=== PATIENT | male | born 1965 | race Caucasian/White ===

== ENCOUNTER → 2016-12-16 | Outpatient (CLI) | payer OTHER ==
[2015-12-05 14:28] VITALS: BP 122/79
[~2016-12-16] MED LIST: ABAC1TAB7 PO; ALPR0.5T PO; ATOR10TA60 PO; CYCL5TAB PO; EFAV600T PO; ESCI10TA PO; FENO145T PO; HYDR-971 PO; LISI-338 PO; OMEP20CA9 PO; PARO20TA2 PO; PHOS250T3 PO; VALIUM10 MG PO; ZOLP10TA4 PO
[2016-12-16 07:52] LABS: BASO % 0 % (0-3); EOS % 0 % (0-3); HEMOGLOBIN 14.4 g/dL (13.0-17.5); LYMPH # 2.5 x10^3/uL (1.0-4.8); LYMPH % 35 % (24-48); MEAN CORPUSCULAR HEMOGLOBIN 35 pg (25-35); MEAN CORPUSCULAR HGB CONC 34 g/dL (31-37); MEAN CORPUSCULAR VOLUME 104 fL (79-100); MONO % 7 % (0-9); NEUT % 57 % (31-73); PLATELET COUNT 159 x10^3/uL (140-400); RED BLOOD COUNT 4.13 x10^6/uL (4.30-5.70); RED CELL DISTRIBUTION WIDTH 13.6 % (11.5-14.5)
[2016-12-16 07:59] LABS: ALBUMIN 4.2 g/dL (3.4-5.0); ALBUMIN/GLOBULIN RATIO 1.2 (1.0-1.7); CALCIUM 9.4 mg/dL (8.5-10.1); CREATININE 1.3 mg/dL (0.7-1.3); GFR 58.7; TOTAL BILIRUBIN 0.3 mg/dL (0.2-1.0); TOTAL PROTEIN 7.6 g/dL (6.4-8.2)
== END | disposition home or self-care (01) ==
LOC: LAB 07:26
PROVIDERS: ATTEND Family Medicine
DX: Z79.899 Other long term (current) drug therapy (principal)
CPT/HCPCS: 36415; 80053; 85027

== ENCOUNTER → 2016-12-16 | Outpatient (CLI) | payer OTHER ==
[2015-12-05 14:28] VITALS: BP 122/79
[~2016-12-16] MED LIST changes: -PARO20TA2 PO; +PARO20TA3 PO
--- NOTE | 2016-12-17 10:36 | RAD ---
Indication fever and chills. Wheezing. Difficulty breathing. PA and lateral views of the chest were obtained. Comparison is made to an examination 08/06/2013. The heart and pulmonary vessels appear normal. The mediastinum has a normal appearance. The lungs are clear. Visualized bony structures appear grossly intact. A significant change compared to the prior exam is not seen. IMPRESSION: No acute finding. No significant change
== END | disposition home or self-care (01) ==
LOC: RAD 16:39
PROVIDERS: ATTEND Nurse Practitioner Family
DX: R06.2 Wheezing (principal); R50.9 Fever, unspecified; R06.02 Shortness of breath; R09.89 Other specified symptoms and signs involving the circulatory and respiratory systems
CPT/HCPCS: 71020

== ENCOUNTER → 2016-12-30 | Outpatient (CLI) | payer OTHER ==
[2015-12-05 14:28] VITALS: BP 122/79
[~2016-12-30] MED LIST changes: +PARO20TA2 PO; -PARO20TA3 PO
[2016-12-30 06:31] LABS: HEMATOCRIT 41.3 % (39.0-53.0); HEMOGLOBIN 13.8 g/dL (13.0-17.5)
[2016-12-30 12:22] LABS: ESTRADIOL LEVEL 73.5 pg/mL (7.6-42.6)
[2016-12-30 15:32] LABS: HOMOCYSTINE LEVEL 14.5 umol/L (0.0-15.0)
[2016-12-31 00:11] LABS: VITAMIN D25(OH)TOTAL 38.3 ng/mL (30.0-100.0)
== END | disposition home or self-care (01) ==
LOC: LAB 12-29 13:38
PROVIDERS: ATTEND Nurse Practitioner Women's Health
DX: E29.1 Testicular hypofunction (principal); E55.9 Vitamin D deficiency, unspecified
CPT/HCPCS: 36415; 82306; 82670; 83090; 84402; 84403; 85014; 85018; G0103

== ENCOUNTER → 2017-02-06 | Outpatient (CLI) | payer OTHER ==
[2015-12-05 14:28] VITALS: BP 122/79
[~2017-02-06] MED LIST changes: -PARO20TA2 PO; +PARO20TA3 PO
[2017-02-06 15:16] LABS: HEMATOCRIT 40.5 % (39.0-53.0); HEMOGLOBIN 13.4 g/dL (13.0-17.5)
[2017-02-07 02:13] LABS: VITAMIN D25(OH)TOTAL 46.9 ng/mL (30.0-100.0)
== END | disposition home or self-care (01) ==
LOC: LAB 14:34
PROVIDERS: ATTEND Nurse Practitioner Women's Health
DX: E29.1 Testicular hypofunction (principal); E55.9 Vitamin D deficiency, unspecified
CPT/HCPCS: 36415; 82306; 84402; 84403; 85014; 85018

== ENCOUNTER → 2017-02-17 | Outpatient (CLI) | payer OTHER ==
[2015-12-05 14:28] VITALS: BP 122/79
[2017-02-17 09:40] LABS: BASO % 0 % (0-3); EOS % 1 % (0-3); HEMATOCRIT 42.9 % (39.0-53.0); HEMOGLOBIN 14.4 g/dL (13.0-17.5); LYMPH # 2.3 x10^3/uL (1.0-4.8); LYMPH % 39 % (24-48); MEAN CORPUSCULAR HEMOGLOBIN 34 pg (25-35); MEAN CORPUSCULAR HGB CONC 34 g/dL (31-37); MEAN CORPUSCULAR VOLUME 102 fL (79-100); MONO % 10 % (0-9); NEUT % 50 % (31-73); PLATELET COUNT 204 x10^3/uL (140-400); RED CELL DISTRIBUTION WIDTH 13.2 % (11.5-14.5); WHITE BLOOD COUNT 5.9 x10^3/uL (4.0-11.0)
[2017-02-17 10:04] LABS: ALBUMIN 3.9 g/dL (3.4-5.0); ALBUMIN/GLOBULIN RATIO 1.1 (1.0-1.7); CALCIUM 9.2 mg/dL (8.5-10.1); CREATININE 1.1 mg/dL (0.7-1.3); GFR 71.1; TOTAL BILIRUBIN 0.3 mg/dL (0.2-1.0); TOTAL PROTEIN 7.3 g/dL (6.4-8.2)
[2017-02-17 10:05] LABS: CHOLESTEROL/HDL RATIO 1.8
[2017-03-01 11:27] LABS: HIV 1/2 AB DIFFERENTIATION SEE SEPARATE REPORT
== END | disposition home or self-care (01) ==
LOC: LAB 08:56
PROVIDERS: ATTEND Family Medicine
DX: B20 Human immunodeficiency virus [HIV] disease (principal)
CPT/HCPCS: 36415; 80053; 80061; 85027; 86703

== ENCOUNTER → 2017-05-08 | Outpatient (CLI) | payer OTHER ==
[2015-12-05 14:28] VITALS: BP 122/79
[~2017-05-08] MED LIST changes: -ESCI10TA PO; +ESCITALOPRAM OX10 MG PO
[2017-05-08 09:10] LABS: BASO % 1 % (0-3); EOS % 0 % (0-3); HEMATOCRIT 44.5 % (39.0-53.0); HEMOGLOBIN 15.2 g/dL (13.0-17.5); LYMPH # 2.4 x10^3/uL (1.0-4.8); LYMPH % 39 % (24-48); MEAN CORPUSCULAR HEMOGLOBIN 32 pg (25-35); MEAN CORPUSCULAR HGB CONC 34 g/dL (31-37); MEAN CORPUSCULAR VOLUME 95 fL (79-100); MONO % 8 % (0-9); NEUT % 53 % (31-73); PLATELET COUNT 175 x10^3/uL (140-400); RED BLOOD COUNT 4.71 x10^6/uL (4.30-5.70); RED CELL DISTRIBUTION WIDTH 14.7 % (11.5-14.5); WHITE BLOOD COUNT 6.3 x10^3/uL (4.0-11.0)
[2017-05-08 09:43] LABS: ALBUMIN 3.7 g/dL (3.4-5.0); ALBUMIN/GLOBULIN RATIO 1.1 (1.0-1.7); CALCIUM 8.6 mg/dL (8.5-10.1); CREATININE 1.3 mg/dL (0.7-1.3); GFR 58.7; POTASSIUM 3.7 mmol/L (3.5-5.1); TOTAL BILIRUBIN 0.7 mg/dL (0.2-1.0)
== END | disposition home or self-care (01) ==
LOC: LAB 08:49
PROVIDERS: ATTEND Family Medicine
DX: B20 Human immunodeficiency virus [HIV] disease (principal); Z79.899 Other long term (current) drug therapy
CPT/HCPCS: 80053; 85027

== ENCOUNTER → 2017-05-23 | Outpatient (CLI) | payer OTHER ==
[2015-12-05 14:28] VITALS: BP 122/79
[2017-05-23 09:35] LABS: BASO % 0 % (0-3); EOS % 1 % (0-3); HEMATOCRIT 44.6 % (39.0-53.0); HEMOGLOBIN 15.3 g/dL (13.0-17.5); LYMPH # 2.3 x10^3/uL (1.0-4.8); LYMPH % 48 % (24-48); MEAN CORPUSCULAR HEMOGLOBIN 32 pg (25-35); MEAN CORPUSCULAR HGB CONC 34 g/dL (31-37); MEAN CORPUSCULAR VOLUME 95 fL (79-100); MONO % 10 % (0-9); NEUT % 42 % (31-73); PLATELET COUNT 158 x10^3/uL (140-400); RED BLOOD COUNT 4.71 x10^6/uL (4.30-5.70); RED CELL DISTRIBUTION WIDTH 15.7 % (11.5-14.5); WHITE BLOOD COUNT 4.8 x10^3/uL (4.0-11.0)
[2017-05-23 09:48] LABS: ALBUMIN 3.8 g/dL (3.4-5.0); ALBUMIN/GLOBULIN RATIO 1.1 (1.0-1.7); CALCIUM 9.5 mg/dL (8.5-10.1); CREATININE 1.2 mg/dL (0.7-1.3); GFR 64.4; TOTAL BILIRUBIN 0.6 mg/dL (0.2-1.0); TOTAL PROTEIN 7.2 g/dL (6.4-8.2)
[2017-05-23 09:52] LABS: CHOLESTEROL/HDL RATIO 2.3
== END | disposition home or self-care (01) ==
LOC: LAB 08:47
PROVIDERS: ATTEND Specialist
DX: E29.1 Testicular hypofunction (principal)
CPT/HCPCS: 36415; 80053; 80061; 83036; 84402; 84403; 84443; 85027

== ENCOUNTER → 2017-06-26 | Outpatient (CLI) | payer OTHER ==
[2015-12-05 14:28] VITALS: BP 122/79
== END | disposition home or self-care (01) ==
LOC: LAB 08:34
PROVIDERS: ATTEND Family Medicine
DX: E29.1 Testicular hypofunction (principal)
CPT/HCPCS: 36415

== ENCOUNTER → 2017-08-01 | Outpatient (CLI) | payer OTHER ==
[2015-12-05 14:28] VITALS: BP 122/79
[2017-08-03 01:11] LABS: VITAMIN D25(OH)TOTAL 57.2 ng/mL (30.0-100.0)
[2017-08-05 16:14] LABS: % FREE TESTOSTERONE 3.42 % (1.50-4.20); TESTOSTERONE FREE >51.30 ng/dL (5.00-21.00); TESTOSTERONE TOTAL >1500 ng/dL (264-916)
== END | disposition home or self-care (01) ==
LOC: LAB 15:20
DX: Z12.5 Encounter for screening for malignant neoplasm of prostate (principal); E29.1 Testicular hypofunction
CPT/HCPCS: 36415; G0103; 82306; 82670; 84402; 84403

== ENCOUNTER → 2017-09-07 | Outpatient (CLI) | payer OTHER ==
[2015-12-05 14:28] VITALS: BP 122/79
[2017-09-07 14:07] LABS: BASO % 0 % (0-3); EOS % 1 % (0-3); HEMATOCRIT 48.3 % (39.0-53.0); HEMOGLOBIN 16.5 g/dL (13.0-17.5); LYMPH # 3.8 x10^3/uL (1.0-4.8); LYMPH % 42 % (24-48); MEAN CORPUSCULAR HEMOGLOBIN 35 pg (25-35); MEAN CORPUSCULAR HGB CONC 34 g/dL (31-37); MEAN CORPUSCULAR VOLUME 101 fL (79-100); MONO % 6 % (0-9); NEUT % 52 % (31-73); PLATELET COUNT 153 x10^3/uL (140-400); RED BLOOD COUNT 4.78 x10^6/uL (4.30-5.70); RED CELL DISTRIBUTION WIDTH 14.2 % (11.5-14.5); WHITE BLOOD COUNT 9.1 x10^3/uL (4.0-11.0)
[2017-09-07 14:26] LABS: ALBUMIN 4.1 g/dL (3.4-5.0); ALBUMIN/GLOBULIN RATIO 1.2 (1.0-1.7); CALCIUM 9.5 mg/dL (8.5-10.1); CREATININE 1.2 mg/dL (0.7-1.3); GFR 64.1; POTASSIUM 3.5 mmol/L (3.5-5.1); TOTAL BILIRUBIN 0.5 mg/dL (0.2-1.0); TOTAL PROTEIN 7.6 g/dL (6.4-8.2)
[2017-09-08 00:11] LABS: RPR REFLEX Non Reactive (Non Reactive)
[2017-09-10 14:10] LABS: HIV-1 RNA BY PCR <20 copies/mL (.)
== END | disposition home or self-care (01) ==
LOC: LAB 13:42
PROVIDERS: ATTEND Family Medicine
DX: B20 Human immunodeficiency virus [HIV] disease (principal); Z79.899 Other long term (current) drug therapy
CPT/HCPCS: 36415; 80053; 80061; 85025; 86593; 87536

== ENCOUNTER → 2017-12-04 | Outpatient (CLI) | payer OTHER ==
[2017-12-04 08:00] LABS: ADD MAN DIFF? NO
[2017-12-04 08:14] LABS: BASO % 0 % (0-3); EOS # 0.1 x10^3/uL (0.0-0.7); EOS % 1 % (0-3); HEMATOCRIT 45.2 % (39.0-53.0); HEMOGLOBIN 15.7 g/dL (13.0-17.5); LYMPH # 2.8 x10^3/uL (1.0-4.8); LYMPH % 50 % (24-48); MEAN CORPUSCULAR HEMOGLOBIN 36 pg (25-35); MEAN CORPUSCULAR HGB CONC 35 g/dL (31-37); MEAN CORPUSCULAR VOLUME 105 fL (79-100); MONO # 0.5 x10^3/uL (0.0-1.1); MONO % 8 % (0-9); NEUT # 2.2 x10^3uL (1.8-7.7); NEUT % 40 % (31-73); PLATELET COUNT 169 x10^3/uL (140-400); RED CELL DISTRIBUTION WIDTH 13.7 % (11.5-14.5); WHITE BLOOD COUNT 5.5 x10^3/uL (4.0-11.0)
[2017-12-04 08:28] LABS: ALBUMIN 4.1 g/dL (3.4-5.0); ALBUMIN/GLOBULIN RATIO 1.2 (1.0-1.7); ALK PHOS 69 U/L (46-116); ALT (SGPT) 52 U/L (16-63); ANION GAP 9 (6-14); AST (SGOT) 28 U/L (15-37); BLOOD UREA NITROGEN 24 mg/dL (8-26); BUN/CREATININE RATIO 17 (6-20); CALCIUM 8.8 mg/dL (8.5-10.1); CARBON DIOXIDE 29 mmol/L (21-32); CHLORIDE 103 mmol/L (98-107); CHOLESTEROL 115 mg/dL (0-200); CREATININE 1.4 mg/dL (0.7-1.3); GFR 53.6; GLUCOSE 95 mg/dL (70-99); HDLC 58 mg/dL (40-60); LDLC 39 mg/dL (0-100); NON-HDL CHOLESTEROL 57 mg/dL (0-129); POTASSIUM 4.1 mmol/L (3.5-5.1); SODIUM 141 mmol/L (136-145); TOTAL BILIRUBIN 0.5 mg/dL (0.2-1.0); TOTAL PROTEIN 7.4 g/dL (6.4-8.2); TRIGLYCERIDES 88 mg/dL (0-150); VLDLC 18 mg/dL (0-40)
[2017-12-04 09:52] LABS: PROSTATE SPECIFIC ANTIGEN 0.95 ng/mL (0.00-4.00)
[2017-12-04 19:12] LABS: ESTRADIOL LEVEL 35.6 pg/mL (7.6-42.6)
[2017-12-07 10:24] LABS: % FREE TESTOSTERONE 3.21 % (1.50-4.20); TESTOSTERONE FREE 28.28 ng/dL (5.00-21.00); TESTOSTERONE TOTAL 881 ng/dL (264-916)
== END | disposition home or self-care (01) ==
LOC: LAB 07:14
DX: Z12.5 Encounter for screening for malignant neoplasm of prostate (principal); Z13.9 Encounter for screening, unspecified; E29.1 Testicular hypofunction; E55.9 Vitamin D deficiency, unspecified
CPT/HCPCS: 36415; 80053; 80061; 82306; 82670; 84402; 84403; 85025; G0103

== ENCOUNTER → 2018-02-01 | Outpatient (CLI) | payer OTHER ==
[2018-02-01 07:36] LABS: ADD MAN DIFF? NO
[2018-02-01 07:46] LABS: BASO % 1 % (0-3); EOS # 0.1 x10^3/uL (0.0-0.7); EOS % 1 % (0-3); HEMOGLOBIN 15.6 g/dL (13.0-17.5); LYMPH % 57 % (24-48); MEAN CORPUSCULAR HEMOGLOBIN 37 pg (25-35); MEAN CORPUSCULAR HGB CONC 35 g/dL (31-37); MEAN CORPUSCULAR VOLUME 106 fL (79-100); MONO # 0.4 x10^3/uL (0.0-1.1); MONO % 8 % (0-9); NEUT # 1.7 x10^3uL (1.8-7.7); NEUT % 33 % (31-73); PLATELET COUNT 170 x10^3/uL (140-400); RED BLOOD COUNT 4.27 x10^6/uL (4.30-5.70); RED CELL DISTRIBUTION WIDTH 12.9 % (11.5-14.5); WHITE BLOOD COUNT 5.3 x10^3/uL (4.0-11.0)
[2018-02-01 08:57] LABS: ALBUMIN/GLOBULIN RATIO 1.2 (1.0-1.7); ALK PHOS 52 U/L (46-116); ALT (SGPT) 29 U/L (16-63); ANION GAP 10 (6-14); AST (SGOT) 21 U/L (15-37); BLOOD UREA NITROGEN 23 mg/dL (8-26); BUN/CREATININE RATIO 14 (6-20); CALCIUM 8.8 mg/dL (8.5-10.1); CARBON DIOXIDE 27 mmol/L (21-32); CHLORIDE 105 mmol/L (98-107); CHOLESTEROL 161 mg/dL (0-200); CREATININE 1.6 mg/dL (0.7-1.3); GLUCOSE 89 mg/dL (70-99); HDLC 58 mg/dL (40-60); LDLC 83 mg/dL (0-100); NON-HDL CHOLESTEROL 103 mg/dL (0-129); POTASSIUM 3.9 mmol/L (3.5-5.1); SODIUM 142 mmol/L (136-145); TOTAL BILIRUBIN 0.4 mg/dL (0.2-1.0); TOTAL PROTEIN 7.3 g/dL (6.4-8.2); TRIGLYCERIDES 100 mg/dL (0-150); VLDLC 20 mg/dL (0-40)
[2018-02-01 08:59] LABS: CHOLESTEROL/HDL RATIO 2.8
[2018-02-02 14:04] LABS: MISCELLANEOUS SEE SEPARATE REPORT
[2018-02-03 12:17] LABS: HIV-1 RNA BY PCR <20 copies/mL (.)
== END | disposition home or self-care (01) ==
LOC: LAB 07:00
DX: Z11.4 Encounter for screening for human immunodeficiency virus [HIV] (principal); R79.89 Other specified abnormal findings of blood chemistry
CPT/HCPCS: 36415; 80053; 80061; 85025; 87536

== ENCOUNTER → 2018-03-07 | Outpatient (CLI) | payer OTHER ==
[2018-03-07 11:12] LABS: HEMATOCRIT 44.1 % (39.0-53.0); HEMOGLOBIN 15.2 g/dL (13.0-17.5); MEAN CORPUSCULAR HGB CONC 35 g/dL (31-37)
[2018-03-07 11:58] LABS: ANION GAP 11 (6-14); BLOOD UREA NITROGEN 19 mg/dL (8-26); CALCIUM 9.1 mg/dL (8.5-10.1); CARBON DIOXIDE 27 mmol/L (21-32); CHLORIDE 103 mmol/L (98-107); CHOLESTEROL 192 mg/dL (0-200); CREATININE 1.4 mg/dL (0.7-1.3); GFR 53.6; GLUCOSE 107 mg/dL (70-99); HDLC 57 mg/dL (40-60); LDLC 119 mg/dL (0-100); NON-HDL CHOLESTEROL 135 mg/dL (0-129); POTASSIUM 3.8 mmol/L (3.5-5.1); SODIUM 141 mmol/L (136-145); TRIGLYCERIDES 78 mg/dL (0-150); VLDLC 16 mg/dL (0-40)
[2018-03-07 11:59] LABS: CHOLESTEROL/HDL RATIO 3.4
[2018-03-07 12:07] LABS: THYROID STIM HORMONE (TSH) 3.438 uIU/mL (0.358-3.74)
[2018-03-07 14:03] LABS: PROSTATE SPECIFIC ANTIGEN 1.02 ng/mL (0.00-4.00)
== END | disposition home or self-care (01) ==
LOC: LAB 10:27
DX: Z12.5 Encounter for screening for malignant neoplasm of prostate (principal); E29.1 Testicular hypofunction; Z13.9 Encounter for screening, unspecified; E55.9 Vitamin D deficiency, unspecified; R79.89 Other specified abnormal findings of blood chemistry
CPT/HCPCS: 80048; 80061; 82306; 84443; 85014; 85018; G0103

== ENCOUNTER → 2018-03-21 | Outpatient (CLI) | payer OTHER ==
[2018-03-21 17:28] LABS: FREE T4 0.79 ng/dL (0.76-1.46)
== END | disposition home or self-care (01) ==
LOC: LAB 16:33
DX: Z13.29 Encounter for screening for other suspected endocrine disorder (principal)
CPT/HCPCS: 36415; 84439; 84481

== ENCOUNTER → 2018-05-24 | Outpatient (CLI) | payer OTHER ==
[2018-05-24 08:32] LABS: FREE T4 0.73 ng/dL (0.76-1.46)
[2018-05-24 08:32] LABS: THYROID STIM HORMONE (TSH) 2.828 uIU/mL (0.358-3.74)
== END | disposition home or self-care (01) ==
LOC: LAB 07:09
DX: E03.9 Hypothyroidism, unspecified (principal); E78.00 Pure hypercholesterolemia, unspecified; Z87.891 Personal history of nicotine dependence
CPT/HCPCS: 36415; 84439; 84443; 84481

== ENCOUNTER → 2018-05-24 | Outpatient (CLI) | payer OTHER ==
[2018-05-24 07:36] LABS: ADD MAN DIFF? NO
[2018-05-24 08:09] LABS: BASO % 0 % (0-3); EOS % 0 % (0-3); HEMATOCRIT 44.4 % (39.0-53.0); HEMOGLOBIN 15.7 g/dL (13.0-17.5); LYMPH # 2.4 x10^3/uL (1.0-4.8); LYMPH % 47 % (24-48); MEAN CORPUSCULAR HEMOGLOBIN 38 pg (25-35); MEAN CORPUSCULAR HGB CONC 35 g/dL (31-37); MEAN CORPUSCULAR VOLUME 108 fL (79-100); MONO # 0.4 x10^3/uL (0.0-1.1); MONO % 7 % (0-9); NEUT # 2.3 x10^3uL (1.8-7.7); NEUT % 45 % (31-73); PLATELET COUNT 151 x10^3/uL (140-400); RED BLOOD COUNT 4.12 x10^6/uL (4.30-5.70); RED CELL DISTRIBUTION WIDTH 12.3 % (11.5-14.5); WHITE BLOOD COUNT 5.1 x10^3/uL (4.0-11.0)
[2018-05-24 08:19] LABS: ALBUMIN 3.9 g/dL (3.4-5.0); ALBUMIN/GLOBULIN RATIO 1.1 (1.0-1.7); ALK PHOS 87 U/L (46-116); ALT (SGPT) 25 U/L (16-63); ANION GAP 8 (6-14); AST (SGOT) 16 U/L (15-37); BLOOD UREA NITROGEN 24 mg/dL (8-26); BUN/CREATININE RATIO 17 (6-20); CARBON DIOXIDE 29 mmol/L (21-32); CHLORIDE 105 mmol/L (98-107); CHOLESTEROL 186 mg/dL (0-200); CREATININE 1.4 mg/dL (0.7-1.3); GFR 53.6; GLUCOSE 95 mg/dL (70-99); HDLC 54 mg/dL (40-60); LDLC 103 mg/dL (0-100); NON-HDL CHOLESTEROL 132 mg/dL (0-129); POTASSIUM 4.2 mmol/L (3.5-5.1); SODIUM 142 mmol/L (136-145); TOTAL BILIRUBIN 0.4 mg/dL (0.2-1.0); TOTAL PROTEIN 7.3 g/dL (6.4-8.2); TRIGLYCERIDES 144 mg/dL (0-150); VLDLC 29 mg/dL (0-40)
[2018-05-24 08:26] LABS: CHOLESTEROL/HDL RATIO 3.4
[2018-05-25 22:16] LABS: HIV-1 RNA BY PCR 40 copies/mL (.)
[2018-05-27 08:19] LABS: MISCELLANEOUS SEE SEPARATE REPORT
== END | disposition home or self-care (01) ==
LOC: LAB 07:02
DX: B20 Human immunodeficiency virus [HIV] disease (principal); E55.9 Vitamin D deficiency, unspecified; E78.00 Pure hypercholesterolemia, unspecified; E03.9 Hypothyroidism, unspecified; Z79.899 Other long term (current) drug therapy; Z87.891 Personal history of nicotine dependence; Z85.9 Personal history of malignant neoplasm, unspecified
CPT/HCPCS: 36415; 80053; 80061; 85025; 86592; 87536

== ENCOUNTER → 2018-08-15 | Outpatient (CLI) | payer OTHER ==
[2015-12-05 14:28] VITALS: BP 122/79
[~2018-08-15] MED LIST changes: +HYDR-3164 PO; -HYDR-971 PO
[2018-08-15 08:01] LABS: BASO % 0 % (0-3); EOS % 0 % (0-3); HEMATOCRIT 41.9 % (39.0-53.0); HEMOGLOBIN 14.6 g/dL (13.0-17.5); LYMPH # 2.5 x10^3/uL (1.0-4.8); LYMPH % 33 % (24-48); MEAN CORPUSCULAR HEMOGLOBIN 37 pg (25-35); MEAN CORPUSCULAR HGB CONC 35 g/dL (31-37); MEAN CORPUSCULAR VOLUME 107 fL (79-100); MONO # 0.6 x10^3/uL (0.0-1.1); MONO % 7 % (0-9); NEUT # 4.4 x10^3uL (1.8-7.7); NEUT % 59 % (31-73); PLATELET COUNT 166 x10^3/uL (140-400); RED BLOOD COUNT 3.91 x10^6/uL (4.30-5.70); WHITE BLOOD COUNT 7.5 x10^3/uL (4.0-11.0)
[2018-08-15 08:29] LABS: ALBUMIN 4.1 g/dL (3.4-5.0); ALBUMIN/GLOBULIN RATIO 1.3 (1.0-1.7); CALCIUM 9.3 mg/dL (8.5-10.1); CREATININE 1.3 mg/dL (0.7-1.3); TOTAL PROTEIN 7.3 g/dL (6.4-8.2)
[2018-08-15 08:30] LABS: GFR 58.4; POTASSIUM 4.2 mmol/L (3.5-5.1); TOTAL BILIRUBIN 0.3 mg/dL (0.2-1.0)
== END | disposition home or self-care (01) ==
LOC: LAB 06:45
PROVIDERS: ATTEND Family Medicine
DX: B20 Human immunodeficiency virus [HIV] disease (principal)
CPT/HCPCS: 36415; 80053; 85025; 86592; 87536

== ENCOUNTER → 2018-08-15 | Outpatient (CLI) | payer OTHER ==
[2015-12-05 14:28] VITALS: BP 122/79
[~2018-08-15] MED LIST changes: -HYDR-3164 PO; +HYDR-971 PO
[2018-08-15 08:30] LABS: BASO % 0 % (0-3); EOS % 0 % (0-3); HEMATOCRIT 41.3 % (39.0-53.0); HEMOGLOBIN 14.5 g/dL (13.0-17.5); LYMPH # 2.4 x10^3/uL (1.0-4.8); LYMPH % 34 % (24-48); MEAN CORPUSCULAR HEMOGLOBIN 37 pg (25-35); MEAN CORPUSCULAR HGB CONC 35 g/dL (31-37); MEAN CORPUSCULAR VOLUME 107 fL (79-100); MONO # 0.5 x10^3/uL (0.0-1.1); MONO % 8 % (0-9); NEUT # 4.1 x10^3uL (1.8-7.7); NEUT % 58 % (31-73); PLATELET COUNT 168 x10^3/uL (140-400); RED BLOOD COUNT 3.88 x10^6/uL (4.30-5.70); RED CELL DISTRIBUTION WIDTH 13.2 % (11.5-14.5); WHITE BLOOD COUNT 7.1 x10^3/uL (4.0-11.0)
[2018-08-15 08:41] LABS: FREE T4 0.82 ng/dL (0.76-1.46); THYROID STIM HORMONE (TSH) 2.369 uIU/mL (0.358-3.74)
[2018-08-15 13:23] LABS: ESTRADIOL LEVEL 21.1 pg/mL (7.6-42.6)
== END | disposition home or self-care (01) ==
LOC: LAB 06:52
PROVIDERS: ATTEND Nurse Practitioner Women's Health
DX: Z12.5 Encounter for screening for malignant neoplasm of prostate (principal); E29.1 Testicular hypofunction; E03.8 Other specified hypothyroidism; R53.83 Other fatigue
CPT/HCPCS: 36415; 82670; 84402; 84403; 84439; 84443; 84481; 85025; G0103; 82626

== ENCOUNTER → 2018-08-20 | Outpatient (CLI) | payer OTHER ==
[2015-12-05 14:28] VITALS: BP 122/79
[2018-08-20 10:44] LABS: BARBITURATES NEG (NEG); BENZODIAZEPINES POS (NEG); CANNABINOIDS NEG (NEG); COCAINE NEG (NEG); METHADONE NEG (NEG); OPIATES NEG (NEG); PHENCYCLIDINE NEG (NEG)
[2018-08-20 10:45] LABS: AMPHETAMINE/METHAMPHETAMINE NEG (NEG)
== END | disposition home or self-care (01) ==
LOC: LAB 10:19
PROVIDERS: ATTEND Nurse Practitioner Family
DX: Z02.89 Encounter for other administrative examinations (principal)
CPT/HCPCS: 80307; G0479

== ENCOUNTER → 2018-10-12 | Outpatient (CLI) | payer OTHER ==
[2015-12-05 14:28] VITALS: BP 122/79
[~2018-10-12] MED LIST changes: +HYDR-3164 PO; -HYDR-971 PO
[2018-10-12 08:06] LABS: BASO % 0 % (0-3); EOS % 0 % (0-3); HEMATOCRIT 43.7 % (39.0-53.0); HEMOGLOBIN 15.2 g/dL (13.0-17.5); LYMPH # 1.8 x10^3/uL (1.0-4.8); LYMPH % 42 % (24-48); MEAN CORPUSCULAR HEMOGLOBIN 38 pg (25-35); MEAN CORPUSCULAR HGB CONC 35 g/dL (31-37); MEAN CORPUSCULAR VOLUME 108 fL (79-100); MONO # 0.4 x10^3/uL (0.0-1.1); MONO % 8 % (0-9); NEUT # 2.1 x10^3uL (1.8-7.7); NEUT % 49 % (31-73); PLATELET COUNT 165 x10^3/uL (140-400); RED BLOOD COUNT 4.06 x10^6/uL (4.30-5.70); RED CELL DISTRIBUTION WIDTH 12.8 % (11.5-14.5); WHITE BLOOD COUNT 4.3 x10^3/uL (4.0-11.0)
[2018-10-12 08:15] LABS: ALBUMIN 4.2 g/dL (3.4-5.0); ALBUMIN/GLOBULIN RATIO 1.2 (1.0-1.7); CREATININE 1.3 mg/dL (0.7-1.3); GFR 58.2; POTASSIUM 4.1 mmol/L (3.5-5.1); TOTAL BILIRUBIN 0.6 mg/dL (0.2-1.0); TOTAL PROTEIN 7.8 g/dL (6.4-8.2)
[2018-10-12 08:19] LABS: CHOLESTEROL/HDL RATIO 3.2
[2018-10-12 08:41] LABS: FREE T4 0.78 ng/dL (0.76-1.46); THYROID STIM HORMONE (TSH) 2.02 uIU/mL (0.358-3.74)
[2018-10-12 14:25] LABS: ESTRADIOL LEVEL 28.9 pg/mL (7.6-42.6)
[2018-10-15 09:14] LABS: TESTOSTERONE FREE 16.81 ng/dL (5.00-21.00); TESTOSTERONE TOTAL 820 ng/dL (264-916)
== END | disposition home or self-care (01) ==
LOC: LAB 07:08
PROVIDERS: ATTEND Nurse Practitioner Women's Health
DX: Z12.5 Encounter for screening for malignant neoplasm of prostate (principal); Z13.21 Encounter for screening for nutritional disorder; Z13.1 Encounter for screening for diabetes mellitus; E29.1 Testicular hypofunction; E03.9 Hypothyroidism, unspecified; Z79.899 Other long term (current) drug therapy
CPT/HCPCS: 36415; 80053; 80061; 82306; 82670; 84402; 84403; 84439; 84443; 84481; 85025; G0103

== ENCOUNTER → 2018-12-13 | Outpatient (CLI) | payer OTHER ==
[2015-12-05 14:28] VITALS: BP 122/79
[2018-12-13 07:59] LABS: BASO % 0 % (0-3); EOS % 1 % (0-3); HEMATOCRIT 47.1 % (39.0-53.0); HEMOGLOBIN 16.2 g/dL (13.0-17.5); LYMPH # 2.6 x10^3/uL (1.0-4.8); LYMPH % 48 % (24-48); MEAN CORPUSCULAR HEMOGLOBIN 37 pg (25-35); MEAN CORPUSCULAR HGB CONC 34 g/dL (31-37); MEAN CORPUSCULAR VOLUME 106 fL (79-100); MONO # 0.4 x10^3/uL (0.0-1.1); MONO % 8 % (0-9); NEUT # 2.3 x10^3uL (1.8-7.7); NEUT % 43 % (31-73); PLATELET COUNT 180 x10^3/uL (140-400); RED BLOOD COUNT 4.43 x10^6/uL (4.30-5.70); RED CELL DISTRIBUTION WIDTH 12.6 % (11.5-14.5); WHITE BLOOD COUNT 5.4 x10^3/uL (4.0-11.0)
[2018-12-13 08:12] LABS: ALBUMIN 4.2 g/dL (3.4-5.0); ALBUMIN/GLOBULIN RATIO 1.2 (1.0-1.7); CALCIUM 9.3 mg/dL (8.5-10.1); CREATININE 1.3 mg/dL (0.7-1.3); GFR 58.2; POTASSIUM 4.2 mmol/L (3.5-5.1); TOTAL BILIRUBIN 0.4 mg/dL (0.2-1.0); TOTAL PROTEIN 7.8 g/dL (6.4-8.2)
[2018-12-13 08:28] LABS: CHOLESTEROL/HDL RATIO 3.5
== END | disposition home or self-care (01) ==
LOC: LAB 07:15
PROVIDERS: ATTEND Family Medicine
DX: Z02.1 Encounter for pre-employment examination (principal)
CPT/HCPCS: 36415; 80053; 80061; 85025; 86592; 86705; 86709; 86803; 87340; 87536

== ENCOUNTER → 2019-01-22 | Outpatient (CLI) | payer OTHER ==
[2015-12-05 14:28] VITALS: BP 122/79
[~2019-01-22] MED LIST changes: +OMEP20CA10 PO; -OMEP20CA9 PO
[2019-01-22 10:32] LABS: BASO % 0 % (0-3); EOS % 1 % (0-3); HEMATOCRIT 45.8 % (39.0-53.0); HEMOGLOBIN 15.3 g/dL (13.0-17.5); LYMPH # 2.6 x10^3/uL (1.0-4.8); LYMPH % 45 % (24-48); MEAN CORPUSCULAR HEMOGLOBIN 36 pg (25-35); MEAN CORPUSCULAR HGB CONC 33 g/dL (31-37); MEAN CORPUSCULAR VOLUME 108 fL (79-100); MONO # 0.6 x10^3/uL (0.0-1.1); MONO % 10 % (0-9); NEUT # 2.7 x10^3uL (1.8-7.7); NEUT % 45 % (31-73); PLATELET COUNT 171 x10^3/uL (140-400); RED BLOOD COUNT 4.23 x10^6/uL (4.30-5.70); RED CELL DISTRIBUTION WIDTH 13.3 % (11.5-14.5); WHITE BLOOD COUNT 5.9 x10^3/uL (4.0-11.0)
[2019-01-22 11:11] LABS: FREE T4 0.77 ng/dL (0.76-1.46); THYROID STIM HORMONE (TSH) 1.016 uIU/mL (0.358-3.74)
[2019-01-22 17:16] LABS: ESTRADIOL LEVEL 40.5 pg/mL (7.6-42.6)
[2019-01-27 16:13] LABS: TESTOSTERONE FREE 22.34 ng/dL (5.00-21.00); TESTOSTERONE TOTAL 1064 ng/dL (264-916)
== END | disposition home or self-care (01) ==
LOC: LAB 07:43
PROVIDERS: ATTEND Nurse Practitioner Women's Health
DX: E03.9 Hypothyroidism, unspecified (principal); E29.1 Testicular hypofunction; R53.83 Other fatigue
CPT/HCPCS: 36415; 82670; 84402; 84403; 84439; 84443; 84481; 85025; G0103; 82626

== ENCOUNTER → 2019-05-17 | Outpatient (CLI) | payer OTHER ==
[2015-12-05 14:28] VITALS: BP 122/79
[2019-05-17 13:25] LABS: BASO % 0 % (0-3); EOS # 0.1 x10^3/uL (0.0-0.7); EOS % 1 % (0-3); HEMATOCRIT 45.5 % (39.0-53.0); HEMOGLOBIN 15.9 g/dL (13.0-17.5); LYMPH % 42 % (24-48); MEAN CORPUSCULAR HEMOGLOBIN 37 pg (25-35); MEAN CORPUSCULAR HGB CONC 35 g/dL (31-37); MEAN CORPUSCULAR VOLUME 107 fL (79-100); MONO # 0.4 x10^3/uL (0.0-1.1); MONO % 6 % (0-9); NEUT # 3.5 x10^3/uL (1.8-7.7); NEUT % 50 % (31-73); PLATELET COUNT 175 x10^3/uL (140-400); RED BLOOD COUNT 4.27 x10^6/uL (4.30-5.70); RED CELL DISTRIBUTION WIDTH 12.7 % (11.5-14.5)
[2019-05-17 13:49] LABS: FREE T4 0.72 ng/dL (0.76-1.46); THYROID STIM HORMONE (TSH) 1.24 uIU/mL (0.358-3.74)
[2019-05-17 19:14] LABS: ESTRADIOL LEVEL <5.0 pg/mL (7.6-42.6)
[2019-05-20 08:14] LABS: TESTOSTERONE FREE 6.14 ng/dL (5.00-21.00); TESTOSTERONE TOTAL 355 ng/dL (264-916)
== END | disposition home or self-care (01) ==
LOC: LAB 12:16
PROVIDERS: ATTEND Nurse Practitioner Women's Health
DX: Z12.5 Encounter for screening for malignant neoplasm of prostate (principal); E03.9 Hypothyroidism, unspecified; E29.1 Testicular hypofunction; R53.83 Other fatigue; Z79.890 Hormone replacement therapy
CPT/HCPCS: 82626; 82670; 84402; 84403; 84439; 84443; 84481; 85025; G0103

== ENCOUNTER → 2019-05-24 | Outpatient (CLI) | payer OTHER ==
[2015-12-05 14:28] VITALS: BP 122/79
--- NOTE | 2019-05-24 14:58 | CARD ---
MR#: [id number] Date of Study: 05/24/2019 Ordering Physician: DOUG LOTT, Referring Physician: DOUG LOTT, Tech: Karen Shabazz RDCS APPROVED REPORT INDICATION Chest Pain Reason : Patient complained of pain PROCEDURE The patient underwent an Exercise Stress Test using the Kyler Protocol. Blood pressure, heart rate, a nd EKG were monitored. An Echocardiogram was performed by lead quality technician in four stages in quad fashion. At peak stress four se lected images were obtained and placed side by side with resting images for comparison. STRESS ECHO FINDINGS The resting Echocardiogram showed normal left ventricular systolic contractility with an estimated Ej ection Fraction of about 55 %. The Resting Echocardiogram showed normal augmentation of myocardial wall segments using a 16 segment model. The Stress Echocardiogram showed normal augmentation of myocardial wall segments using a 16 segment m humberto. The Stress Echocardiogram left ventricular systolic contractility has an estimated Ejection Fraction of about 65%. Test Type: Exercise Stress Nurse/Tech: Azalia Duong R.N. Test Indications: palpitations, chest heaviness Cardiac History and Allergies: none Medications: see ehr Medical History: see ehr Resting ECG: sr Resting Heart Rate: 59 bpm Resting Blood Pressure: 122/75mmHg Pretest Chest Pain: No chest pain Nurse/Tech Notes lungs cta, heart tones regular Stress Symptoms No chest pain or symptoms. POST EXERCISE Reason for Termination: Reached target heart rate Target HR: No Max HR: 169 bpm 100% of Maximum Predicted HR: 169 bpm Exercise duration: 12:00 min:sec, 4 Stage Exercise capacity: 12.8METs Max Blood Pressure: 158/70mmHg Blood Pressure response to exercise: Normal blood pressure response during stress. Heart Rate response to exercise: nornal Chest Pain: No. Arrhythmia: No. ST Change: Yes. some ST depression noted in II III avf and lateral leads, but minimal, difficult to a ssess with motion, all resolved with ectopy STRESS ECG Stress EKG shows no significant changes. Preliminary Notification Critical Value: No <Conclusion> No evidence of stress induced EKG changes. Good exercise capacity with 12 Mets achieved. Normal BP/HR response Normal resting and stress walll motion and EF. (Images obtained at less than APMHR, decreasing specif icity of the test). Signed by : Doug Lott, Electronically Approved : 05/24/2019 14:58:04
== END | disposition home or self-care (01) ==
LOC: ECHO 12:51
PROVIDERS: ATTEND Internal Medicine Cardiovascular Disease
DX: R07.9 Chest pain, unspecified (principal)
CPT/HCPCS: 93017; 93350

== ENCOUNTER → 2019-05-30 | Outpatient (CLI) | payer OTHER ==
[2015-12-05 14:28] VITALS: BP 122/79
[~2019-05-30] MED LIST changes: +ABAC1TAB13 PO; +ALPR0.25 PO; +ASPI325T11 PO; +ATOR10TA PO; +CELE100C PO; +CONTRAST GIVEN. MC PRN; +GADOTERATE 7.5 MMOL/15ML VIAL. IVP ONE; +IOHEXOL 240 MG/ML 50ML VIAL. PO ONE; +IOHEXOL 300 MG/ML 100ML VIAL. IV ONE; +THYR120T PO
--- NOTE | 2019-05-30 09:49 | RAD ---
CT ABD PELV W/ORAL IV CONTRAST Indication: History of Burkitt's lymphoma, abdominal pain for 3 weeks Technique: Postcontrast CT imaging was performed of the abdomen pelvis, multiplanar reconstruction images submitted. Oral contrast was also given. One or more of the following individualized dose reduction techniques were utilized for this examination: 1. Automated exposure control 2. Adjustment of the mA and/or kV according to patient size 3. Use of iterative reconstruction technique. Comparison: November 22, 2013 Findings: Both kidneys enhance. There is very minimal left hydronephrosis and proximal left hydroureter, 0.6 cm calculus in the proximal left ureter near the L4-5 level. Urinary bladder is somewhat distended. There is inferior left renal calculus about 0.8 cm maximal dimension. There is hypodense lesion of the inferior left kidney about 2.6 cm, density measurements of a cyst at about 4 Hounsfield units. There is tiny hypodense lesion of the mid left kidney too small to characterize about 0.4 cm. There are also a couple of tiny hypodense foci of the mid right kidney, largest about 0.4 cm, too small to accurately characterize. There is no significant abnormality of the limited visualized lung bases. No focal abnormality is identified of the liver, spleen, pancreas. There has been cholecystectomy. There is no adrenal nodularity. Bowel is not significantly dilated. There is no free fluid or free air. Mild wall thickening of the terminal ileum and cecum is difficult to exclude on this exam although could be due to peristalsis and incomplete distention. No new significantly enlarged nodes are identified. There is mild L5-S1 degenerative disc disease, also likely shallow bulge/protrusion at this level. IMPRESSION: 1. There is very mild left hydronephrosis and proximal hydroureter, 0.6 cm calculus in the proximal left ureter near the L4-5 level. There is inferior left renal calculus. Urinary bladder is somewhat distended. 2. There is inferior left renal cyst, a few other small hypodense foci of the bilateral kidneys too small to accurately characterize. 3. It is difficult to exclude nonspecific mild wall thickening of the terminal ileum and cecum although findings could be accentuated by peristalsis and incomplete distention. Underlying mild inflammatory change is not excluded, less commonly associated with lymphoma. Electronically signed by: Ivan Lima MD (05/30/2019 9:46 AM) [id number]
--- NOTE | 2019-05-30 15:14 | RAD ---
MRI Brain with and without contrast History: Headaches for 3 weeks Technique: Multiplanar, multi sequential pre and postcontrast MR imaging was performed of the brain. Comparison: None Findings: There is a small approximate 4-5 mm focus of restricted diffusion of the right cerebellum with corresponding mild T2 and FLAIR hyperintense signal, no associated enhancement. Ventricular size is within normal limits. There is mild prominence of the supratentorial subarachnoid spaces greater near the vertex which may be on developmental basis.There is no significant midline shift, intraaxial mass effect, or focal abnormal extra-axial fluid collection. Otherwise there is no significant signal abnormality including hemosiderin deposition of the brain parenchyma. There is no nodular parenchymal or leptomeningeal enhancement. There is preservation of the major intracranial flow-voids at the skull base. The cerebellar tonsils are normal in location. There is no significant abnormality of the pineal gland or pituitary gland. There is negligible patchy ethmoid air cell mucosal thickening. There is tiny focus of fluid left mastoid air cell, otherwise aerated.There is preserved marrow signal of the clivus. Impression: 1. 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 No other significant abnormality is identified. FOR INTERNAL CODING PURPOSES Critical result: Findings discussed with nurse practitioner Sarah in the office of Dr. Frias at 05/30/2019 3:07 PM. RESULT CODE: (C) Electronically signed by: Ivan Lima MD (05/30/2019 3:11 PM) [facility]
== END | disposition home or self-care (01) ==
LOC: CT 07:28
DX: C83.73 Burkitt lymphoma, intra-abdominal lymph nodes (principal); N13.2 Hydronephrosis with renal and ureteral calculous obstruction; N13.4 Hydroureter; N32.89 Other specified disorders of bladder; N28.1 Cyst of kidney, acquired; R51 Headache; M51.37 Other intervertebral disc degeneration, lumbosacral region; Z90.49 Acquired absence of other specified parts of digestive tract
CPT/HCPCS: 70553; 74177; A9575; Q9966; Q9967

== ENCOUNTER → 2019-06-24 | Outpatient (CLI) | payer OTHER ==
[2019-05-31 11:49] VITALS: BP 99/64
[~2019-06-24] MED LIST changes: -CONTRAST GIVEN. MC PRN; -GADOTERATE 7.5 MMOL/15ML VIAL. IVP ONE; -IOHEXOL 240 MG/ML 50ML VIAL. PO ONE; -IOHEXOL 300 MG/ML 100ML VIAL. IV ONE; +NIAC500T PO; +OMEG1CAP2 PO
== END | disposition home or self-care (01) ==
LOC: LAB 08:12
PROVIDERS: ATTEND Nurse Practitioner Family
DX: R63.4 Abnormal weight loss (principal)
CPT/HCPCS: 87338

== ENCOUNTER → 2019-07-22 | Day surgery (SDC) | payer OTHER ==
[~2019-07-22] MED LIST changes: +IV RINGERS,LACTATED 1000ML 1,000 ML IV SCH; +LIDOCAINE 1% PF 2 ML VIAL. ID PRN; +OMEP40CA45 PO; +ONDANSETRON PF 4 MG/2 ML VIAL. IV PRN; +PROCHLORPERAZINE 10 MG/2 ML VIAL. IV PRN; +PROPOFOL 20 ML IV ONE; +PROPOFOL 40 ML IV ONE; +fentaNYL PF VIAL 100 MCG/2 ML VIAL IV PRN
--- NOTE | 2019-07-22 15:01 | PDOC4 ---
PROCEDURE Procedure EGD/biopsies Colonoscopy/polypectomies Indications: weight loss/hx polyps/blood in stool/nausea Meds: per anesthesia Findings: RYNE: normal 'Scope advanced to cecum. Mucosa normal. No diverticula. 4mm polyp, mid- transverse, biopsied off. 10-12mm polyp, descending, hot snared. 10-12mm polyp, sigmoid, hot snared. Internal hemorrhoids on retroflex. E--Less than or equal to grade A at 40cm. G--Mild striped erythema, antrum, biopsied. D--Normal to second portion, biopsies bulb, second portion. Ta. well. IMP: mild esophagitis Antral erythema, biopsied. Duodenal biopsies re: weight loss. REC: continue meds and diet as now. await histology. F/u in 2 weeks. Repeat colonoscopy 5 years. SHAI NOLASCO MD Jul 22, 2019 15:01
[2019-07-22 15:32] VITALS: BP 97/67
--- NOTE | 2019-07-24 17:06 | PATHOLOGY ---
[facility] Accession Number: [id number] . 01 Material submitted: . PART A: small bowel - SMALL BOWEL 2ND PORTION DUODENUM RULE OUT SPRUE PART B: duodenum bulb - DUODENAL BULB PART C: stomach - ANTRAL BIOPSY PART D: colon - BIOPSY TRANSVERSE COLON. Modifiers: transverse PART E: colon - DESCENDING COLON POLYP. Modifiers: descending PART F: sigmoid colon - SIGMOID COLON POLYP . 01 Clinical history: . Nausea, weight loss, rectal bleed, Hx polyps . 02 Diagnosis: A. Small bowel biopsy second portion duodenum: - Mild nonspecific active duodenitis with mild villous flattening attributable to inflammation, negative for granulomas, viral inclusions and dysplasia. (See comment) . B. Duodenal bulb: - Moderate nonspecific active duodenitis with mild villous flattening attributable to inflammation, negative for granulomas, diagnostic viral inclusions and dysplasia. (See comment) . C. Antral biopsy: - Mild nonspecific chronic antral gastritis, negative for Helicobacter pylori organisms, granulomas and dysplasia. . D. Biopsy transverse colon: - Hyperplastic polyp. . E. Descending colon polyp: - Tubular adenoma, negative for high grade dysplasia. . F. Sigmoid colon polyp: - Pedunculated tubular adenoma without high grade dysplasia, completely removed. . (ZULY:mm; 07/24/2019) [facility] 07/24/2019 1202 Local . 02 Comment: In both the second portion duodenum and duodenal bulb biopsies (A and B) there is mild villous flattening, however, this is attributable to the inflammation present and there is also no significant intraepithelial lymphocytosis and therefore celiac sprue is thought to be unlikely. If there is a high clinical suspicion of celiac disease, clearance of the inflammation with re-biopsy and/or serology may be more definitive. . Special stain (C): H. pylori immuno. . (ZULY:mml; 07/24/2019) . 02 Electronically signed: . Torsten Nelson MD, Pathologist NPI- [id number] . 01 Gross description: . A. Received in formalin labeled "Ryan Coulter, small bowel BX 2nd portion duodenum, rule out sprue " are 5 segments of torres soft tissue measuring 1.5 x 0.6 x 0.2 cm in aggregate dimensions and ranging from 0.3 to 0.7 cm in maximum dimension. The specimen is submitted entirely in cassette A1. . B. Received in formalin labeled "Ryan Coulter, duodenal bulb BX," are 2 segments of torres soft tissue measuring 1.0 x 0.3 x 0.2 cm in aggregate dimensions and measuring 0.5 cm each in maximum dimension. The specimen is submitted entirely in cassette B1. . C. Received in formalin labeled "Ryan Coulter, antral BX," is a single segment of torres soft tissue measuring 0.7 cm in maximum dimension. The specimen is entirely submitted in cassette C1. . D. Received in formalin labeled "Ryan Coulter, BX transverse colon," is a single segment of torres soft tissue measuring 0.4 cm in maximum dimension. The specimen is entirely submitted in cassette D1. . E. Received in formalin labeled "Ryan Coulter, descending colon polyp," is a 1.0 x 0.5 x 0.6 cm polypoid piece of torres soft tissue. The margin is inked and the tissue is sectioned perpendicular to the margin and submitted entirely in cassettes E1 and E2. Additionally received in the same container is a 0.8 x 0.5 x 0.4 cm polypoid piece of torres soft tissue. The margin is inked and the tissue is sectioned perpendicular to the margin and entirely submitted in cassette E3. . F. Received in formalin labeled "Ryan Coulter, sigmoid colon polyp," is a 1.1 x 0.8 x 0.6 cm polypoid piece of torres soft tissue. The margin is inked and the tissue is sectioned perpendicular to the margin and submitted entirely in cassettes F1 and F2. (TSD; 07/23/2019) TOB/TOB 07/24/2019 1151 Local . 02 Pathologist provided ICD-10: K29.80, K29.50, K63.5, D12.4, D12.5 . 02 CPT . 258530, 913518, 787006, 930821, 705954, [id number], [id number] Specimen Comment: A courtesy copy of this report has been sent to Specimen Comment: [phone], . Specimen Comment: Report sent to / DR VAUGHN Specimen Comment: A duplicate report has been generated due to demographic updates. Performed at: [address], [place] [id number] MD Jeb Yarbrough MD Phone: [phone] [facility]formed at: [facility] [address], [place], [place] [id number] MD Torsten Nelson MD Phone: [phone]
== END ==
LOC: ENDOS 12:36
PROVIDERS: ATTEND Internal Medicine Gastroenterology
DX: K63.5 Polyp of colon (principal); D12.4 Benign neoplasm of descending colon; D12.5 Benign neoplasm of sigmoid colon; K21.0 Gastro-esophageal reflux disease with esophagitis; K29.50 Unspecified chronic gastritis without bleeding; K64.0 First degree hemorrhoids; K29.80 Duodenitis without bleeding; F41.9 Anxiety disorder, unspecified; F32.9 Major depressive disorder, single episode, unspecified; B20 Human immunodeficiency virus [HIV] disease; E78.00 Pure hypercholesterolemia, unspecified; F15.90 Other stimulant use, unspecified, uncomplicated; Z86.010 Personal history of colon polyps; Z88.6 Allergy status to analgesic agent; Z88.3 Allergy status to other anti-infective agents; Z88.8 Allergy status to other drugs, medicaments and biological substances; Z72.89 Other problems related to lifestyle; Z87.891 Personal history of nicotine dependence; Z79.82 Long term (current) use of aspirin; Z90.49 Acquired absence of other specified parts of digestive tract; Z98.890 Other specified postprocedural states
CPT/HCPCS: 43239; 45380; 45385; 88305; 88342; J2704

== ENCOUNTER → 2019-10-11 | Outpatient (CLI) | payer OTHER ==
[2019-07-22 15:32] VITALS: BP 97/67
[~2019-10-11] MED LIST changes: -IV RINGERS,LACTATED 1000ML 1,000 ML IV SCH; -LIDOCAINE 1% PF 2 ML VIAL. ID PRN; +OMEP-229 PO; -OMEP20CA10 PO; -ONDANSETRON PF 4 MG/2 ML VIAL. IV PRN; -PROCHLORPERAZINE 10 MG/2 ML VIAL. IV PRN; -PROPOFOL 20 ML IV ONE; -PROPOFOL 40 ML IV ONE; -fentaNYL PF VIAL 100 MCG/2 ML VIAL IV PRN
[2019-10-11 10:39] LABS: BASO % 0 % (0-3); EOS % 1 % (0-3); HEMATOCRIT 39.6 % (39.0-53.0); HEMOGLOBIN 13.7 g/dL (13.0-17.5); LYMPH # 3.1 x10^3/uL (1.0-4.8); LYMPH % 37 % (24-48); MEAN CORPUSCULAR HEMOGLOBIN 37 pg (25-35); MEAN CORPUSCULAR HGB CONC 35 g/dL (31-37); MEAN CORPUSCULAR VOLUME 107 fL (79-100); MONO # 0.6 x10^3/uL (0.0-1.1); MONO % 8 % (0-9); NEUT # 4.6 x10^3/uL (1.8-7.7); NEUT % 55 % (31-73); PLATELET COUNT 195 x10^3/uL (140-400); RED BLOOD COUNT 3.71 x10^6/uL (4.30-5.70); RED CELL DISTRIBUTION WIDTH 12.7 % (11.5-14.5); WHITE BLOOD COUNT 8.4 x10^3/uL (4.0-11.0)
[2019-10-11 11:10] LABS: FREE T4 0.68 ng/dL (0.76-1.46); THYROID STIM HORMONE (TSH) 0.354 uIU/mL (0.358-3.74)
[2019-10-11 16:10] LABS: ESTRADIOL LEVEL 10.4 pg/mL (7.6-42.6)
[2019-10-14 08:09] LABS: TESTOSTERONE FREE 1.12 ng/dL (5.00-21.00)
== END | disposition home or self-care (01) ==
LOC: LAB 07:54
PROVIDERS: ATTEND Nurse Practitioner Women's Health
DX: E55.9 Vitamin D deficiency, unspecified (principal); E72.12 Methylenetetrahydrofolate reductase deficiency; E72.11 Homocystinuria
CPT/HCPCS: 36415; 82306; 82607; 82627; 82670; 83090; 84153; 84402; 84403; 84439; 84443; 84481; 85025; G0103

== ENCOUNTER → 2019-10-31 | Outpatient (CLI) | payer OTHER ==
[2019-07-22 15:32] VITALS: BP 97/67
[~2019-10-31] MED LIST changes: -OMEP-229 PO; +OMEP20CA16 PO
== END | disposition home or self-care (01) ==
LOC: LAB 13:45
PROVIDERS: ATTEND Family Medicine
DX: B20 Human immunodeficiency virus [HIV] disease (principal)
CPT/HCPCS: 36415; 87536

== ENCOUNTER → 2019-12-16 | Outpatient (CLI) | payer OTHER ==
[2019-07-22 15:32] VITALS: BP 97/67
[2019-12-16 08:27] LABS: BASO % 0 % (0-3); EOS # 0.1 x10^3/uL (0.0-0.7); EOS % 1 % (0-3); HEMATOCRIT 43.5 % (39.0-53.0); HEMOGLOBIN 15.1 g/dL (13.0-17.5); LYMPH # 2.9 x10^3/uL (1.0-4.8); LYMPH % 46 % (24-48); MEAN CORPUSCULAR HEMOGLOBIN 37 pg (25-35); MEAN CORPUSCULAR HGB CONC 35 g/dL (31-37); MEAN CORPUSCULAR VOLUME 106 fL (79-100); MONO # 0.5 x10^3/uL (0.0-1.1); MONO % 8 % (0-9); NEUT # 2.9 x10^3/uL (1.8-7.7); NEUT % 45 % (31-73); PLATELET COUNT 183 x10^3/uL (140-400); RED BLOOD COUNT 4.11 x10^6/uL (4.30-5.70); RED CELL DISTRIBUTION WIDTH 13.6 % (11.5-14.5); WHITE BLOOD COUNT 6.4 x10^3/uL (4.0-11.0)
[2019-12-16 08:57] LABS: ALBUMIN 4.1 g/dL (3.4-5.0); ALBUMIN/GLOBULIN RATIO 1.4 (1.0-1.7); CALCIUM 8.9 mg/dL (8.5-10.1); CREATININE 1.3 mg/dL (0.7-1.3); POTASSIUM 3.8 mmol/L (3.5-5.1); TOTAL BILIRUBIN 0.5 mg/dL (0.2-1.0); TOTAL PROTEIN 7.1 g/dL (6.4-8.2)
== END | disposition home or self-care (01) ==
LOC: LAB 07:55
PROVIDERS: ATTEND Family Medicine
DX: B20 Human immunodeficiency virus [HIV] disease (principal); E29.1 Testicular hypofunction
CPT/HCPCS: 36415; 80053; 85025; 86592; 86705; 86709; 86803; 87340; 87536

== ENCOUNTER → 2019-12-16 | Outpatient (CLI) | payer OTHER ==
[2019-07-22 15:32] VITALS: BP 97/67
[2019-12-16 08:31] LABS: BASO % 1 % (0-3); EOS # 0.1 x10^3/uL (0.0-0.7); EOS % 1 % (0-3); HEMATOCRIT 43.4 % (39.0-53.0); LYMPH # 2.9 x10^3/uL (1.0-4.8); LYMPH % 45 % (24-48); MEAN CORPUSCULAR HEMOGLOBIN 37 pg (25-35); MEAN CORPUSCULAR HGB CONC 35 g/dL (31-37); MEAN CORPUSCULAR VOLUME 106 fL (79-100); MONO # 0.5 x10^3/uL (0.0-1.1); MONO % 8 % (0-9); NEUT # 2.9 x10^3/uL (1.8-7.7); NEUT % 45 % (31-73); PLATELET COUNT 174 x10^3/uL (140-400); RED CELL DISTRIBUTION WIDTH 13.4 % (11.5-14.5); WHITE BLOOD COUNT 6.3 x10^3/uL (4.0-11.0)
[2019-12-16 20:07] LABS: ESTRADIOL LEVEL 43.1 pg/mL (7.6-42.6)
== END | disposition home or self-care (01) ==
LOC: LAB 08:00
PROVIDERS: ATTEND Nurse Practitioner Women's Health
DX: E29.1 Testicular hypofunction (principal)
CPT/HCPCS: 36415; 82627; 82670; 84403; 84410; 85025

== ENCOUNTER → 2020-02-14 | Outpatient (CLI) | payer OTHER ==
[2019-07-22 15:32] VITALS: BP 97/67
[2020-02-14 10:53] LABS: FREE T4 0.87 ng/dL (0.76-1.46); THYROID STIM HORMONE (TSH) 0.132 uIU/mL (0.358-3.74)
== END | disposition home or self-care (01) ==
LOC: LAB 09:41
PROVIDERS: ATTEND Nurse Practitioner Women's Health
DX: E03.9 Hypothyroidism, unspecified (principal); R53.83 Other fatigue
CPT/HCPCS: 36415; 84439; 84443; 84481

== ENCOUNTER → 2020-05-04 | Outpatient (CLI) | payer OTHER ==
[2019-07-22 15:32] VITALS: BP 97/67
[2020-05-04 13:03] LABS: BASO % 0 % (0-3); EOS % 0 % (0-3); HEMATOCRIT 48.1 % (39.0-53.0); HEMOGLOBIN 16.9 g/dL (13.0-17.5); LYMPH # 2.8 x10^3/uL (1.0-4.8); LYMPH % 37 % (24-48); MEAN CORPUSCULAR HEMOGLOBIN 37 pg (25-35); MEAN CORPUSCULAR HGB CONC 35 g/dL (31-37); MONO # 0.6 x10^3/uL (0.0-1.1); MONO % 8 % (0-9); NEUT % 54 % (31-73); PLATELET COUNT 176 x10^3/uL (140-400); RED BLOOD COUNT 4.54 x10^6/uL (4.30-5.70); RED CELL DISTRIBUTION WIDTH 14.8 % (11.5-14.5); WHITE BLOOD COUNT 7.5 x10^3/uL (4.0-11.0)
[2020-05-04 13:10] LABS: MEAN CORPUSCULAR VOLUME 105 fL (79-100)
[2020-05-04 13:17] LABS: FREE T4 0.69 ng/dL (0.76-1.46); THYROID STIM HORMONE (TSH) 1.097 uIU/mL (0.358-3.74)
== END | disposition home or self-care (01) ==
LOC: LAB 11:16
PROVIDERS: ATTEND Nurse Practitioner Women's Health
DX: E03.9 Hypothyroidism, unspecified (principal); E29.1 Testicular hypofunction; R53.83 Other fatigue
CPT/HCPCS: 82626; 82670; 84439; 84443; 84481; 85025; G0103

== ENCOUNTER → 2020-06-30 | Outpatient (CLI) | payer OTHER ==
[2019-07-22 15:32] VITALS: BP 97/67
== END | disposition home or self-care (01) ==
LOC: LAB 06:43
PROVIDERS: ATTEND Internal Medicine Pulmonary Disease
DX: Z20.828 Contact with and (suspected) exposure to other viral communicable diseases (principal)
CPT/HCPCS: U0003-CS

== ENCOUNTER → 2020-09-11 | Outpatient (CLI) | payer OTHER ==
[2019-07-22 15:32] VITALS: BP 97/67
[2020-09-11 13:16] LABS: BASO % 0 % (0-3); EOS % 0 % (0-3); HEMATOCRIT 47.2 % (39.0-53.0); HEMOGLOBIN 16.6 g/dL (13.0-17.5); LYMPH # 4.2 x10^3/uL (1.0-4.8); LYMPH % 48 % (24-48); MEAN CORPUSCULAR HEMOGLOBIN 37 pg (25-35); MEAN CORPUSCULAR HGB CONC 35 g/dL (31-37); MEAN CORPUSCULAR VOLUME 106 fL (79-100); MONO # 0.6 x10^3/uL (0.0-1.1); MONO % 6 % (0-9); NEUT # 3.9 x10^3/uL (1.8-7.7); NEUT % 45 % (31-73); PLATELET COUNT 171 x10^3/uL (140-400); RED BLOOD COUNT 4.46 x10^6/uL (4.30-5.70); RED CELL DISTRIBUTION WIDTH 13.2 % (11.5-14.5); WHITE BLOOD COUNT 8.8 x10^3/uL (4.0-11.0)
[2020-09-11 14:46] LABS: FREE T4 0.85 ng/dL (0.76-1.46); THYROID STIM HORMONE (TSH) 1.498 uIU/mL (0.358-3.74)
[2020-09-11 23:07] LABS: ESTRADIOL LEVEL 58.1 pg/mL (7.6-42.6)
== END ==
LOC: LAB 07:53
PROVIDERS: ATTEND Nurse Practitioner Women's Health
DX: Z12.5 Encounter for screening for malignant neoplasm of prostate (principal); R53.83 Other fatigue; E72.12 Methylenetetrahydrofolate reductase deficiency; E72.11 Homocystinuria; E03.9 Hypothyroidism, unspecified; E55.9 Vitamin D deficiency, unspecified
CPT/HCPCS: 36415; 82306; 82607; 82627; 82670; 82746; 84403; 84410; 84439; 84443; 84481; 85025; G0103

== ENCOUNTER → 2020-12-01 | Outpatient (CLI) | payer OTHER ==
[2019-07-22 15:32] VITALS: BP 97/67
[~2020-12-01] MED LIST changes: -LISI-338 PO; +LISI-517 PO
== END ==
LOC: LAB 09:14
PROVIDERS: ATTEND Internal Medicine Pulmonary Disease
DX: R05 Cough (principal); R50.9 Fever, unspecified; R11.0 Nausea; R09.81 Nasal congestion; Z20.828 Contact with and (suspected) exposure to other viral communicable diseases
CPT/HCPCS: U0003

== ENCOUNTER → 2020-12-17 | Outpatient (CLI) | payer OTHER ==
[2019-07-22 15:32] VITALS: BP 97/67
[2020-12-18 08:21] LABS: BASO % 0 % (0-3); EOS % 1 % (0-3); HEMATOCRIT 44.5 % (39.0-53.0); HEMOGLOBIN 15.3 g/dL (13.0-17.5); LYMPH # 2.5 x10^3/uL (1.0-4.8); LYMPH % 36 % (24-48); MEAN CORPUSCULAR HEMOGLOBIN 37 pg (25-35); MEAN CORPUSCULAR HGB CONC 35 g/dL (31-37); MEAN CORPUSCULAR VOLUME 107 fL (79-100); MONO # 0.4 x10^3/uL (0.0-1.1); MONO % 6 % (0-9); NEUT # 3.9 x10^3/uL (1.8-7.7); NEUT % 57 % (31-73); PLATELET COUNT 165 x10^3/uL (140-400); RED BLOOD COUNT 4.16 x10^6/uL (4.30-5.70); RED CELL DISTRIBUTION WIDTH 12.5 % (11.5-14.5); WHITE BLOOD COUNT 6.8 x10^3/uL (4.0-11.0)
[2020-12-18 09:02] LABS: CHOLESTEROL/HDL RATIO 2.8
[2020-12-18 10:35] LABS: ALBUMIN 4.7 g/dL (3.4-5.0); ALBUMIN/GLOBULIN RATIO 1.5 (1.0-1.7); CALCIUM 8.8 mg/dL (8.5-10.1); CREATININE 1.2 mg/dL (0.7-1.3); GFR 63.3; TOTAL BILIRUBIN 0.7 mg/dL (0.2-1.0); TOTAL PROTEIN 7.8 g/dL (6.4-8.2)
[2020-12-18 21:09] LABS: T3 TOTAL 82 ng/dL (71-180); THYROXINE 5.3 ug/dL (4.5-12.0)
== END ==
LOC: LAB 08:37
PROVIDERS: ATTEND Family Medicine
DX: B20 Human immunodeficiency virus [HIV] disease (principal)
CPT/HCPCS: 36415; 80053; 80061; 84402; 84403; 84436; 84443; 84480; 85025; 87536

== ENCOUNTER → 2021-02-22 | Outpatient (CLI) | payer OTHER ==
[2019-07-22 15:32] VITALS: BP 97/67
[~2021-02-22] MED LIST changes: +GADOTERATE 7.5 MMOL/15ML VIAL. IVP ONE
--- NOTE | 2021-02-22 16:34 | RAD ---
MRI of the Brain without and with Contrast 02/22/2021 Clinical History: CVA.. Technique: Unenhanced T1-weighted sagittal and axial and FLAIR, T2-weighted, . Echo and diffusion-danyelle ghted axial images of the brain were obtained. After the intravenous administration of 15 cc of JERALD SCAN, enhanced T1-weighted axial, sagittal and coronal images of the brain were obtained. Findings: The ventricles and sulci are within normal limits in size and configuration. Patchy and a f ew small scattered areas of increased signal intensity are seen within the periventricular and subcor tical white matter posterolateral hemispheres on the FLAIR and T2-weighted images consistent with are as of very mild small vessel ischemic disease. No acute parenchymal abnormality is seen. No extra-axi al fluid collection is noted. No MRI evidence of acute ischemia/infarction. Mild mucosal thickening in seen scattered throughout the paranasal sinuses there are minimal bilatera l mastoid effusions. Normal flow voids are seen within the major vascular structures surrounding the brain parenchyma. IMPRESSION: No acute parenchymal abnormality is seen. Electronically signed by: Myles Hays MD (02/22/2021 4:32 PM) [id number]
== END ==
LOC: MRI 12:31
PROVIDERS: ATTEND Family Medicine
DX: I63.40 Cerebral infarction due to embolism of unspecified cerebral artery (principal)
CPT/HCPCS: 70553; A9575

== ENCOUNTER → 2021-03-23 | Outpatient (CLI) | payer OTHER ==
[2019-07-22 15:32] VITALS: BP 97/67
[~2021-03-23] MED LIST changes: -GADOTERATE 7.5 MMOL/15ML VIAL. IVP ONE
[2021-03-26 09:14] LABS: TESTOSTERONE FREE 29.3 ng/dL (5.00-21.00)
== END ==
LOC: LAB 10:05
PROVIDERS: ATTEND Family Medicine
DX: R53.83 Other fatigue (principal); B20 Human immunodeficiency virus [HIV] disease
CPT/HCPCS: 36415; 84402; 84403; 84443

== ENCOUNTER → 2021-06-15 | Outpatient (CLI) | payer OTHER ==
[2019-07-22 15:32] VITALS: BP 97/67
[~2021-06-15] MED LIST changes: -OMEP40CA45 PO; +OMEP40CA7 PO
[2021-06-15 09:22] LABS: BASO % 1 % (0-3); EOS % 1 % (0-3); HEMATOCRIT 40.1 % (39.0-53.0); HEMOGLOBIN 14.1 g/dL (13.0-17.5); LYMPH # 2.3 x10^3/uL (1.0-4.8); LYMPH % 47 % (24-48); MEAN CORPUSCULAR HEMOGLOBIN 38 pg (25-35); MEAN CORPUSCULAR HGB CONC 35 g/dL (31-37); MEAN CORPUSCULAR VOLUME 108 fL (79-100); MONO # 0.4 x10^3/uL (0.0-1.1); MONO % 9 % (0-9); NEUT # 2.2 x10^3/uL (1.8-7.7); NEUT % 44 % (31-73); PLATELET COUNT 198 x10^3/uL (140-400); RED CELL DISTRIBUTION WIDTH 13.4 % (11.5-14.5)
[2021-06-15 13:11] LABS: ALBUMIN 4.1 g/dL (3.4-5.0); ALBUMIN/GLOBULIN RATIO 1.3 (1.0-1.7); CALCIUM 9.5 mg/dL (8.5-10.1); CREATININE 1.4 mg/dL (0.7-1.3); TOTAL BILIRUBIN 0.5 mg/dL (0.2-1.0); TOTAL PROTEIN 7.3 g/dL (6.4-8.2)
[2021-06-15 20:08] LABS: TESTOSTERONE TOTAL 186 ng/dL (264-916)
== END ==
LOC: LAB 09:00
PROVIDERS: ATTEND Family Medicine
DX: B20 Human immunodeficiency virus [HIV] disease (principal); E29.1 Testicular hypofunction; Z79.899 Other long term (current) drug therapy
CPT/HCPCS: 80053; 80061; 82306; 84403; 85025; 87536

== ENCOUNTER → 2021-11-19 | Outpatient (CLI) | payer OTHER ==
[2019-07-22 15:32] VITALS: BP 97/67
[~2021-11-19] MED LIST changes: +CEPH500T PO; +HYDR-2761 PO; -LISI-517 PO; +LISI5TAB15 PO; +ONDA4TAB12 PO
[2021-11-19 11:21] LABS: BASO % 0 % (0-3); EOS % 0 % (0-3); HEMATOCRIT 43.7 % (39.0-53.0); HEMOGLOBIN 15.1 g/dL (13.0-17.5); LYMPH # 2.7 x10^3/uL (1.0-4.8); LYMPH % 41 % (24-48); MEAN CORPUSCULAR HEMOGLOBIN 38 pg (25-35); MEAN CORPUSCULAR HGB CONC 35 g/dL (31-37); MEAN CORPUSCULAR VOLUME 108 fL (79-100); MONO # 0.5 x10^3/uL (0.0-1.1); MONO % 7 % (0-9); NEUT # 3.4 x10^3/uL (1.8-7.7); NEUT % 52 % (31-73); PLATELET COUNT 184 x10^3/uL (140-400); RED BLOOD COUNT 4.04 x10^6/uL (4.30-5.70); RED CELL DISTRIBUTION WIDTH 13.2 % (11.5-14.5); WHITE BLOOD COUNT 6.6 x10^3/uL (4.0-11.0)
[2021-11-19 11:43] LABS: ALBUMIN 4.3 g/dL (3.4-5.0); ALBUMIN/GLOBULIN RATIO 1.1 (1.0-1.7); CALCIUM 8.3 mg/dL (8.5-10.1); CREATININE 1.2 mg/dL (0.7-1.3); GFR 63.1; POTASSIUM 3.9 mmol/L (3.5-5.1); TOTAL BILIRUBIN 0.3 mg/dL (0.2-1.0); TOTAL PROTEIN 8.3 g/dL (6.4-8.2)
[2021-11-19 11:44] LABS: CHOLESTEROL/HDL RATIO 3.3
[2021-11-19 11:57] LABS: FREE T4 0.77 ng/dL (0.76-1.46); THYROID STIM HORMONE (TSH) 1.338 uIU/mL (0.358-3.74)
[2021-11-19 22:11] LABS: ESTRADIOL LEVEL 22.4 pg/mL (7.6-42.6)
== END ==
LOC: LAB 10:39
PROVIDERS: ATTEND Nurse Practitioner Women's Health
DX: Z00.00 Encounter for general adult medical examination without abnormal findings (principal); Z12.5 Encounter for screening for malignant neoplasm of prostate; Z13.1 Encounter for screening for diabetes mellitus; Z13.220 Encounter for screening for lipoid disorders; E55.9 Vitamin D deficiency, unspecified; E72.12 Methylenetetrahydrofolate reductase deficiency; E72.11 Homocystinuria
CPT/HCPCS: 36415; 80053; 80061; 82306; 82627; 82670; 83090; 84153; 84410; 84439; 84443; 84481; 85025; G0103

== ENCOUNTER → 2022-01-04 | Outpatient (CLI) | payer OTHER ==
[2019-07-22 15:32] VITALS: BP 97/67
[~2022-01-04] MED LIST changes: -CEPH500T PO; -HYDR-2761 PO; -ONDA4TAB12 PO
[2022-01-04 09:22] LABS: BASO % 0 % (0-3); EOS # 0.1 x10^3/uL (0.0-0.7); EOS % 1 % (0-3); HEMATOCRIT 41.5 % (39.0-53.0); HEMOGLOBIN 14.1 g/dL (13.0-17.5); LYMPH # 2.6 x10^3/uL (1.0-4.8); LYMPH % 45 % (24-48); MEAN CORPUSCULAR HEMOGLOBIN 37 pg (25-35); MEAN CORPUSCULAR HGB CONC 34 g/dL (31-37); MEAN CORPUSCULAR VOLUME 107 fL (79-100); MONO # 0.4 x10^3/uL (0.0-1.1); MONO % 7 % (0-9); NEUT # 2.6 x10^3/uL (1.8-7.7); NEUT % 46 % (31-73); PLATELET COUNT 191 x10^3/uL (140-400); RED BLOOD COUNT 3.87 x10^6/uL (4.30-5.70); RED CELL DISTRIBUTION WIDTH 12.9 % (11.5-14.5); WHITE BLOOD COUNT 5.8 x10^3/uL (4.0-11.0)
[2022-01-04 09:52] LABS: ALBUMIN 4.3 g/dL (3.4-5.0); ALBUMIN/GLOBULIN RATIO 1.2 (1.0-1.7); ALK PHOS 121 U/L (46-116); ALT (SGPT) 60 U/L (16-63); ANION GAP 9 (6-14); AST (SGOT) 32 U/L (15-37); BLOOD UREA NITROGEN 17 mg/dL (8-26); BUN/CREATININE RATIO 14 (6-20); CARBON DIOXIDE 28 mmol/L (21-32); CHLORIDE 104 mmol/L (98-107); CHOLESTEROL 208 mg/dL (0-200); CREATININE 1.2 mg/dL (0.7-1.3); GFR 63.1; GLUCOSE 88 mg/dL (70-99); HDLC 47 mg/dL (40-60); POTASSIUM 4.5 mmol/L (3.5-5.1); SODIUM 141 mmol/L (136-145); TOTAL BILIRUBIN 0.2 mg/dL (0.2-1.0); TOTAL PROTEIN 7.9 g/dL (6.4-8.2); TRIGLYCERIDES 555 mg/dL (0-150); VLDLC 111 mg/dL (0-40)
[2022-01-04 09:55] LABS: CHOLESTEROL/HDL RATIO 4.4
== END ==
LOC: LAB 08:37
PROVIDERS: ATTEND Family Medicine
DX: E29.1 Testicular hypofunction (principal); B20 Human immunodeficiency virus [HIV] disease; Z79.899 Other long term (current) drug therapy
CPT/HCPCS: 80053; 80061; 84402; 84403; 84443; 85025; 87536

== ENCOUNTER 2022-01-09 11:07 | Emergency (ER) | payer OTHER ==
[~2022-01-09] VITALS: Ht 177.8 cm; Wt 82.0 kg
[2022-01-09 11:13] VITALS: BP 157/97
--- NOTE | 2022-01-09 11:39 | PHYS DOC ---
Past Medical History Past Medical History: Anxiety, Cancer, Depression, High Cholesterol, HIV Additional Past Medical Histor: HIV, non hodgkins lymphoma-burketts, squamous and basal cell carcinoma Past Surgical History: Appendectomy, Cholecystectomy Additional Past Surgical Histo: bone marrow transplant, lithrotripsy Smoking Status: Former Smoker Alcohol Use: Occasionally Drug Use: None General Adult EDM: Chief Complaint: LACERATION/AVULSION HPI: HPI: Patient is a 56-year-old male that presents today with a laceration to his left palm. Patient states that last evening around 7 PM he was opening a bag of birdseed and the bag slipped and the knife punctured his left hand on the palmar side near his thumb. Patient states that he placed a pressure dressing on it to stop the bleeding, he presents today because he has having increased pain and he believes he needs a tetanus shot. Review of Systems: Review of Systems: Constitutional: Denies fever or chills. [] Eyes: Denies change in visual acuity. [] HENT: Denies nasal congestion or sore throat. [] Respiratory: Denies cough or shortness of breath. [] Cardiovascular: Denies chest pain or edema. [] GI: Denies abdominal pain, nausea, vomiting, bloody stools or diarrhea. [] : Denies dysuria. [] Musculoskeletal: Denies back pain or joint pain. [] Integument: Laceration to left palm Neurologic: Denies headache, focal weakness or sensory changes. [] Endocrine: Denies polyuria or polydipsia. [] Lymphatic: Denies swollen glands. [] Psychiatric: Denies depression or anxiety. [] Heart Score: C/O Chest Pain: No Risk Factors: Risk Factors: DM, Current or recent (<one month) smoker, HTN, HLP, family history of CAD, obesity. Risk Scores: Score 0 - 3: 2.5% MACE over next 6 weeks - Discharge Home Score 4 - 6: 20.3% MACE over next 6 weeks - Admit for Clinical Observation Score 7 - 10: 72.7% MACE over next 6 weeks - Early Invasive Strategies Allergies: Allergies: Allergies Coded Allergies Type Severity Reaction Last Updated Verified Penicillins Allergy Intermediate 07/22/19 Yes codeine Allergy Intermediate 07/22/19 Yes morphine Allergy Intermediate 07/22/19 Yes cephalexin Adverse Reaction Intermediate Nausea and Vomiting 07/22/19 Yes iodine Adverse Reaction Intermediate PT IS NOT ALLERGIC TO IODINE, IMPAIRED RENAL FUNCTION 07/22/19 No Physical Exam: PE: Constitutional: Well developed, well nourished, no acute distress, non-toxic appearance. [] HENT: Normocephalic, atraumatic, bilateral external ears normal, oropharynx moist, no oral exudates, nose normal. [] Eyes: PERRLA, EOMI, conjunctiva normal, no discharge. [] Neck: Normal range of motion, no tenderness, supple, no stridor. [] Cardiovascular:Heart rate regular rhythm, no murmur [] Lungs & Thorax: Bilateral breath sounds clear to auscultation [] Abdomen: Bowel sounds normal, soft, no tenderness, no masses, no pulsatile masses. [] Skin: 1 cm laceration noted thenar eminence, no active bleeding noted, [] Back: No tenderness, no CVA tenderness. [] Extremities: Left hand tenderness noted over the thenar eminence, ecchymosis noted sensory is intact in the thumb, cap refill is less than 2 seconds in the thumb and index finger on the left hand, patient has limited range of motion due to pain in the left hand. Neurologic: Alert and oriented X 3, normal motor function, normal sensory function, no focal deficits noted. [] Psychologic: Affect normal, judgement normal, mood normal. [] Current Patient Data: Vital Signs: Vital Signs Date Time Temp Pulse Resp B/P (MAP) Pulse Ox O2 Delivery O2 Flow Rate FiO2 01/09/22 11:13 99.1 78 16 157/97 (117) 100 Room Air 99.1 EKG: EKG: [] Radiology/Procedures: Radiology/Procedures: [REASON: puncture wound,stabbed thumb area with scissors opening bag. PROCEDURE: HAND LEFT 3V EXAM: Left hand, 3 views. HISTORY: Puncture wound. COMPARISON: None. FINDINGS: 3 views of the left hand are obtained. There is no fracture, dislocation or subluxation. There is no foreign body. IMPRESSION: No acute osseous finding or radiodense foreign body. Electronically signed by: Josefina Montanez MD (01/09/2022 11:52 AM) [facility] ] Course & Med Decision Making: Course & Med Decision Making Pertinent Labs and Imaging studies reviewed. (See chart for details) 9090 Dr Xavier at bedside she examed wound and since the wound is over 12 hours old, no sutures will be placed. Dr Xavier spoke to patient about allergies and patient states that he can take Cephalexin but if causes nausea and that if take with zofran he can tolerate it. 1215 wound irrigated by the staff, patient was placed in a thumb spica splint, patient is to follow-up with his primary care physician or Dr. Kingsley the orthopedic doctor on-call in the next 2 to 3 days for further management of this laceration. 1245: Left thumb spica splint placed by nursing staff, reassessment of hand shows neurovascular intact distal to the splint, patient denies any numbness tingling, cap refill is less than 2 seconds. Dragon Disclaimer: Dragon Disclaimer: This electronic medical record was generated, in whole or in part, using a voice recognition dictation system. Departure Departure Impression: Primary Impression: Laceration of left hand Qualified Codes: S61.412A - Laceration without foreign body of left hand, initial encounter Disposition: HOME / SELF CARE / HOMELESS Condition: STABLE Referrals: NADYA FRIAS MD (PCP) LETY KINGSLEY Jr. DO Patient Instructions: Cast or Splint Care, Laceration Care, Adult Additional Instructions: Keep splint clean and dry and in place until you are followed up with Dr. Frias or the orthopedic doctor listed in the referral section Cephalexin 1 tablet every 6 hours for 5 days Zofran 4 mg take 1 tablet every 6-8 hours as needed for nausea, use with caution may cause constipation Hydrocodone take 1 tablet every 6 hours as needed for severe pain, use with caution may cause drowsiness and constipation Nizd-gvy-mddwfsn Tylenol and/or ibuprofen as needed for mild to moderate pain Follow-up with your primary care physician in the next 2 to 3 days for further management of this laceration Watch for any signs and symptoms of infection which may include redness, drainage, warmth, increased swelling, or development of a fever, if you have any of the symptoms return here to the emergency department or follow-up with your primary care. Scripts Hydrocodone Bit/Acetaminophen (HYDROCODONE-APAP 5-325 ) 1 Tab Tablet 1 TAB PO PRN Q6HRS PRN for PAIN, #10 TAB 0 Refills Prov: LYNDA OREILLY PITCHING COACH 01/09/22 Ondansetron (ONDANSETRON ODT) 4 Mg Tab.rapdis 1 TAB PO PRN Q6-8HRS, #20 TAB Prov: LYNDA OREILLY 01/09/22 Cephalexin (CEPHALEXIN) 500 Mg Tablet 1 CAP PO QID, #20 CAP Prov: LYNDA OREILLY 01/09/22 LYNDA OREILLY PITCHING COACH Jan 09, 2022 11:39
[2022-01-09] MEDS ORDERED: DIPHTH,PERTUSS(ACELL),TET TOX 0.5 ML DISP.SYRIN. VAX IM ONE (11:45)
[2022-01-09] MEDS ORDERED: ONDANSETRON ODT 4 MG TAB.RAPDIS. PO ONE (11:45)
[2022-01-09] MEDS ORDERED: HYDROcodone/APAP 5/325MG 1 TAB TABLET PO ONE (11:45)
--- NOTE | 2022-01-09 11:54 | RAD ---
EXAM: Left hand, 3 views. HISTORY: Puncture wound. COMPARISON: None. FINDINGS: 3 views of the left hand are obtained. There is no fracture, dislocation or subluxation. Th ere is no foreign body. IMPRESSION: No acute osseous finding or radiodense foreign body. Electronically signed by: Josefina Montanez MD (01/09/2022 11:52 AM) [facility]
[2022-01-09] MEDS ORDERED: CEPH500T PO (12:14)
[2022-01-09] MEDS ORDERED: HYDR-2761 PO (12:14)
[2022-01-09] MEDS ORDERED: ONDA4TAB12 PO (12:14)
== END 2022-01-09 12:50 | disposition home or self-care (01) ==
LOC: ER 11:07
DX: S61.412A Laceration without foreign body of left hand, initial encounter (principal); E78.00 Pure hypercholesterolemia, unspecified; Z87.891 Personal history of nicotine dependence; Z88.0 Allergy status to penicillin; Z88.1 Allergy status to other antibiotic agents; Z88.5 Allergy status to narcotic agent; Z88.8 Allergy status to other drugs, medicaments and biological substances; W26.0XXA Contact with knife, initial encounter; Y93.89 Activity, other specified; Y99.8 Other external cause status; Y92.89 Other specified places as the place of occurrence of the external cause
CPT/HCPCS: 29125; 73130; 90471; 90715; 99283

== ENCOUNTER → 2022-01-25 | Outpatient (CLI) | payer OTHER ==
[2022-01-09 11:13] VITALS: BP 157/97
[~2022-01-25] MED LIST changes: +CEPH500T PO; +HYDR-2761 PO; +ONDA4TAB12 PO
== END ==
LOC: LAB 11:40 → EDSTATUS 12:04
PROVIDERS: ATTEND Nurse Practitioner Women's Health
DX: R79.89 Other specified abnormal findings of blood chemistry (principal)
CPT/HCPCS: 36415

== ENCOUNTER → 2022-03-17 | Outpatient (CLI) | payer OTHER ==
[2022-03-17 10:27] LABS: BASO % 1 % (0-3); EOS % 0 % (0-3); HEMATOCRIT 43.1 % (39.0-53.0); LYMPH # 2.7 x10^3/uL (1.0-4.8); LYMPH % 43 % (24-48); MEAN CORPUSCULAR HEMOGLOBIN 37 pg (25-35); MEAN CORPUSCULAR HGB CONC 35 g/dL (31-37); MEAN CORPUSCULAR VOLUME 107 fL (79-100); MONO # 0.4 x10^3/uL (0.0-1.1); MONO % 6 % (0-9); NEUT # 3.2 x10^3/uL (1.8-7.7); NEUT % 50 % (31-73); PLATELET COUNT 177 x10^3/uL (140-400); RED BLOOD COUNT 4.02 x10^6/uL (4.30-5.70); RED CELL DISTRIBUTION WIDTH 12.9 % (11.5-14.5); WHITE BLOOD COUNT 6.5 x10^3/uL (4.0-11.0)
[2022-03-17 10:54] LABS: ALBUMIN 4.3 g/dL (3.4-5.0); ALBUMIN/GLOBULIN RATIO 1.4 (1.0-1.7); CALCIUM 9.3 mg/dL (8.5-10.1); CHOLESTEROL/HDL RATIO 2.6; CREATININE 1.3 mg/dL (0.7-1.3); GFR 57.5; POTASSIUM 4.5 mmol/L (3.5-5.1); TOTAL BILIRUBIN 0.6 mg/dL (0.2-1.0); TOTAL PROTEIN 7.3 g/dL (6.4-8.2)
== END ==
LOC: LAB 08:51
PROVIDERS: ATTEND Family Medicine
DX: B20 Human immunodeficiency virus [HIV] disease (principal); Z79.899 Other long term (current) drug therapy
CPT/HCPCS: 36415; 80053; 80061; 85025; 87536